=== PATIENT | male | born 1995 | race Caucasian/White ===

== ENCOUNTER 2017-10-02 11:51 | Emergency (ER) | payer SELFPAY ==
[2017-10-02] MEDS ORDERED: diphenhydrAMINE 50 MG Cap PO ONE (12:35)
[2017-10-02] MEDS ORDERED: Famotidine 20 MG Tab PO ONE (12:35)
[2017-10-02] MEDS ORDERED: predniSONE 20 MG Tab PO ONE (12:40)
--- NOTE | 2017-10-02 12:41 | EDM.PDOC ---
ED HPI GENERAL MEDICAL PROBLEM - General Chief Complaint: Allergic Reaction Stated Complaint: SWOLLEN FACE/ALLERGIC REACTION Time Seen by Provider: 10/02/17 12:20 Source of Information: Reports: Patient History Limitations: Reports: No Limitations - History of Present Illness INITIAL COMMENTS - FREE TEXT/NARRATIVE: Patient is a 22-year-old male presents ED complaining of rash to his face, right arm, and hands bilaterally. Patient states he noticed some irritation to his face and hands this past Wednesday. Was evaluated by PCP at [facility] in [place] this past Wednesday prescribed prednisone 20 mg twice a day to which he's been taking. In addition has been taking Benadryl 50 mg on intermittent basis. States the rash is hives and itches. Notes this morning experience swelling to his face that worsened. Denies any wheezing, shortness of breath, difficulty swallowing, or history of reaction as such. 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 Patient states he is right-handed and has to reach deep into the pipe to paint the inside of it. The right arm has hives in addition to his hands. He has been refraining from coming in contact with the chemicals since onset. He's been wearing the same coat, hat, and close thus further exposing himself to the chemicals that are saturated within the clothing. States another coworker had similar reaction and had to be off work for almost one week. Patient patient has only been employed there for one month. In addition he has been hot showers in the morning thus further exacerbating the condition. Again patient denies any wheezing, shortness of breath, difficulty swallowing, chest pain, nausea/vomiting, fever/chills, or any additional complaints. Treatments CARE CONNECTOR: Reports: Other (see below) Other Treatments CARE CONNECTOR: prednosone Face Pain Score (Numeric/FACES): 2 - Related Data Allergies Allergy/AdvReac Type Severity Reaction Status Date / Time No Known Allergies Allergy Verified 10/02/17 12:10 Home Meds: Home Meds Prednisone [IJD: predniSONE] 20 mg PO BID 10/02/17 [History] Prednisone [IJP: Prednisone] 10 mg PO ASDIRECTED #20 tab 10/02/17 [Rx] diphenhydrAMINE [Benadryl] 50 mg PO Q6HR PRN #0 10/02/17 [Rx] Past Medical History Cardiovascular History: Reports: Other (See Below) Other Cardiovascular History: ASD closure Musculoskeletal History: Reports: Other (See Below) Other Musculoskeletal History: right ankle surgery Social & Family History - Tobacco Use Smoking Status *Q: Current Every Day Smoker Years of Tobacco use: 2 Packs/Tins Daily: 0.2 - Caffeine Use Caffeine Use: Reports: Coffee, Tea - Recreational Drug Use Recreational Drug Use: No ED ROS ALLERGIC REACTION - Review of Systems Review Of Systems: ROS reveals no pertinent complaints other than HPI. ED EXAM GENERAL NO PERIP PULSE - Physical Exam Exam: See Below Exam Limited By: No Limitations General Appearance: Alert, WD/WN, No Apparent Distress Eye Exam: Bilateral Eye: PERRL, Other (Right left eyes are swollen with faint redness.) Ears: Normal External Exam, Hearing Grossly Normal Throat/Mouth: Normal Voice, No Airway Compromise Head: Other (Mild swelling to the bases, skin is fairly red in color, uticaria rash present.) Neck: Normal Inspection, Supple, Non-Tender, Full Range of Motion Respiratory/Chest: No Respiratory Distress, Lungs Clear, Normal Breath Sounds, No Accessory Muscle Use, Chest Non-Tender Cardiovascular: Normal Peripheral Pulses, Regular Rate, Rhythm, No Murmur Extremities: Other (Patient is here caring to the hands bilaterally. Faint swelling present. No pain or discomfort noted on palpation. Her care extends up just past the right elbow. Again patient is right handed and reaches deep into the pipe to apply this chemical.) Neurological: Alert, Oriented, CN II-XII Intact, Normal Cognition, No Motor/ Sensory Deficits Psychiatric: Normal Affect, Normal Mood Skin Exam: Warm, Dry, Rash (Hives to the face, right and left hands, right forearm.) Course - Vital Signs Last Recorded V/S: Last Vital Signs Temp 98.0 F 10/02/17 12:04 Pulse 79 10/02/17 12:04 Resp 20 10/02/17 12:04 BP 122/69 10/02/17 12:04 Pulse Ox 99 10/02/17 12:04 - Orders/Labs/Meds Meds: Medications Discontinued Medications Generic Name Dose Route Start Last Admin Trade Name Freq PRN Reason Stop Dose Admin Diphenhydramine HCl 50 mg 10/02/17 12:35 10/02/17 12:43 Benadryl PO 11/11/17 12:36 50 mg ONETIME ONE Administration Famotidine 40 mg 10/02/17 12:35 10/02/17 12:43 Pepcid PO 10/02/17 12:36 40 mg ONETIME ONE Administration Prednisone 40 mg 10/03/17 12:36 Prednisone PO 10/03/17 12:37 ONETIME ONE Prednisone 40 mg 10/02/17 12:40 10/02/17 12:43 Prednisone PO 10/02/17 12:41 40 mg ONETIME ONE Administration Prednisone Confirm 10/02/17 12:46 10/02/17 12:48 Prednisone Administered 10/02/17 12:47 Not Given Dose 40 mg .ROUTE .STK-MED ONE - Re-Assessments/Exams Free Text/Narrative Re-Assessment/Exam: Patient's had an allergic reaction to most likely a chemical that 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 He continues to wear the same hat, jacket, pants, gloves that have come in contact with the chemicals. In addition he's been taking hot showers in the morning further exacerbating the histamine released. I have ordered Pepcid 40 mg by mouth, Benadryl 50 mg by mouth, and prednisone 40 mg by mouth. Patient will be off work for the next 5-7 days until symptoms resolve. In addition, instructed him to wash all clothing that comes in contact with the chemicals. Throw gloves away. Refrain from coming in contact with the chemicals and if so wear a mask, take a shower that evening after work, and do not take hot showers with hives present. Departure - Departure Time of Disposition: 12:49 Disposition: Home, Self-Care 01 Condition: Good Clinical Impression: Allergic reaction to chemical substance Qualifiers: Encounter type: subsequent encounter Injury intent: accidental or unintentional Qualified Code(s): T65.91XD - Toxic effect of unspecified substance, accidental (unintentional), subsequent encounter - Discharge Information Prescriptions: Prednisone [IJP: Prednisone] 10 mg PO ASDIRECTED #20 tab Instructions: Allergies Referrals: Lacey Gudino PA-C [Primary Care Provider] - Forms: ED Department Discharge, ED Return to Work/School Form Additional Instructions: As discussed will have you off of work for the next 7 days to allow rash to resolve. Have all your work clothing washed thoroughly. Refrain from contact with this chemical substance in the future. No hot showers until rash resolves. Suggest after returning from work that you take a shower rinsing off all chemicals you are exposed to in the future. Take the prednisone as prescribed. Continue taking Benadryl every 6 hours as needed for itching. Take Pepcid 40 mg every day until symptoms resolve. Follow-up with PCP at conclusion of therapy to ensure resolution of rash. Return to ED if he developed increased swelling, difficulty breathing, difficulty swallowing, chest pain, nausea vomiting, fever , or any additional complaints.
[2017-10-02] MEDS ORDERED: predniSONE 20 MG Tab ONE (12:46)
[2017-10-03] MEDS ORDERED: predniSONE 20 MG Tab PO ONE (12:36)
== END 2017-10-02 13:50 | disposition home or self-care (01) ==
LOC: SUPCPDRO 11:51 → JD.ED 11:51
DX: T65.91XD Toxic effect of unspecified substance, accidental (unintentional), subsequent encounter (principal); F17.210 Nicotine dependence, cigarettes, uncomplicated; Z98.890 Other specified postprocedural states
CPT/HCPCS: 99283; A9270